=== PATIENT | female | born 1960 | race Caucasian/White ===

== ENCOUNTER 2024-05-17 21:13 | Emergency (ER) | payer OTHER ==
[~2024-05-17] VITALS: Ht 165.1 cm; Wt 99.8 kg
[2024-05-17 21:39] VITALS: TEMP 97.6
[2024-05-17 23:00] VITALS: PULSE 75; RESP 15
[2024-05-18] MEDS ORDERED: ULTRAM 50MG50 MG PO (00:07)
[2024-05-18 00:49] VITALS: BP 135/90; PULSE 73; RESP 18; TEMP 98.3; O2SAT 99
== END 2024-05-18 00:26 | disposition home or self-care (01) ==
LOC: ER 21:23
DX: M54.2 Cervicalgia (principal); M25.551 Pain in right hip; W01.198A Fall on same level from slipping, tripping and stumbling with subsequent striking against other object, initial encounter; Y93.01 Activity, walking, marching and hiking; Y92.89 Other specified places as the place of occurrence of the external cause; I10 Essential (primary) hypertension
CPT/HCPCS: 70450; 72125; 72128; 72131; 99284